=== PATIENT | female | born 1990 | race Caucasian/White ===

== ENCOUNTER 2016-11-21 10:10 | Emergency (ER) | payer MEDICAID ==
[~2016-11-21] VITALS: Ht 157.5 cm; Wt 56.8 kg
[2016-11-21 13:44] VITALS: BP 122/57
== END 2016-11-21 13:45 | disposition home or self-care (01) ==
LOC: EMS 10:12
DX: M54.12 Radiculopathy, cervical region (principal); F12.90 Cannabis use, unspecified, uncomplicated
CPT/HCPCS: 72125; 81025; 99284

== ENCOUNTER 2017-04-24 12:25 | Emergency (ER) | payer SELFPAY ==
[~2017-04-24] VITALS: Ht 157.5 cm; Wt 52.7 kg
[2017-04-24 13:42] VITALS: BP 111/81
== END 2017-04-24 14:14 | disposition home or self-care (01) ==
LOC: EMS 12:26
DX: B34.9 Viral infection, unspecified (principal); F12.10 Cannabis abuse, uncomplicated
CPT/HCPCS: 99283